=== PATIENT | female | born 1995 | race Caucasian/White ===

== ENCOUNTER 2018-03-07 19:53 | Emergency (ER) | payer SELFPAY ==
[2016-06-14 11:50] VITALS: Wt 79.4 kg
[~2018-03-07 19:53] MED LIST: DOCU240C67 PO; IBUP800T37 PO; Lanolin TP; ONDA4TAB97 PO; PER PO; PREN-127 PO
--- NOTE | 2018-03-07 19:55 | ER Report ---
History and Physical Time Seen By : 19:54 HPI/ROS CHIEF COMPLAINT: Chest pain, back pain HISTORY OF PRESENT ILLNESS: 22-year-old female presents via wheelchair to the emergency department complaining of chest pain and back pain. Patient is undergoing treatment for a back injury related to her work. She recently received 3 days of prednisone approximately one week ago. She finished several days ago. At around 5 PM, she developed some sharp pleuritic chest pain aggravated by deep inspiration and movement. She notes it radiates to her back. She notes sharp pain in her neck and upper back radiating to her right extremity. No fever or chills. She denies recent URI cough sore throat or rhinitis. She denies dysuria or urinary frequency. REVIEW OF SYSTEMS: Respiratory: As above Cardiovascular: As above Gastrointestinal: No vomiting, no abdominal pain. Musculoskeletal: No back pain. Allergies: Coded Allergies: No Known Drug Allergies (Unverified , 03/07/18) Home Meds Active Scripts Hydrocodone Bit/Acetaminophen (NORCO 5-325 TABLET) 1 Each Tablet, 1 EACH PO Q4H PRN for PAIN, #10 TAB Prov:ANNA PEDROZA DO 03/07/18 Oxycodone/Acetaminophen (OXYCODONE/ACETAMINOPHEN 5MG/325 MG) 5 Mg/325 Mg Tab, 1- 2 TAB PO Q4H PRN for PAIN, #20 TAB Prov:SALVADOR DOYLE MD 06/16/16 [Lanolin] 7 GM OINT No Conflict Check, 0 GM TP PRN PRN for DISCOMFORT FOR NURSING MOTHERS, TUBE Prov:SALVADOR DOYLE MD 06/16/16 Ibuprofen (IBUPROFEN) 800 Mg Tablet, 800 MG PO Q8H@04,12,20 for 10 Days, TAB Prov:SALVADOR DOYLE MD 06/16/16 Docusate Calcium (DOCUSATE CALCIUM) 240 Mg Capsule, 240 MG PO BID for 10 Days, CAPSULE Prov:SALVADOR DOYLE MD 06/16/16 Reported Medications Vits W-Ca,Fe,Fa(<1MG) ( VITAMINS) 1 Each Tablet, 1 EACH PO DAILY, TAB 04/29/16 Reviewed Nurses Notes: Yes Old Medical Records Reviewed: Yes Hx Smoking: No Smoking Status: Never Smoker Exposure to Second Hand Smoke?: No Constitutional Vital Sign - Last 24 Hours 03/07/18 03/07/18 03/07/1819/18 19:57 19:58 20:00 20:23 Temp 97.9 Pulse 67 68 Resp 16 14 B/P (MAP) 103/53 (70) 103/53 98/59 (72) Pulse Ox 95 95 O2 Delivery Room Air 03/07/18 03/07/18 03/07/18 03/07/18 20:30 20:38 21:08 21:23 Pulse 74 85 79 Resp 30 15 18 B/P (MAP) 98/59 (72) Pulse Ox 93 97 97 03/07/18 03/07/18 03/07/18 03/07/18 21:38 21:44 21:49 22:00 Pulse 81 83 B/P (MAP) 107/65 (79) 109/71 (84) Pulse Ox 97 95 03/07/18 03/07/18 22:04 22:16 Pulse 78 85 Resp 16 B/P (MAP) 138/85 (102) Pulse Ox 96 95 O2 Delivery Room Air Intake and Output 03/07/18 03/07/18 03/08/18 15:00 23:00 07:00 Intake Total 1000 ml Balance 1000 ml Physical Exam Borderline hypotensive, afebrile, pulse ox normal General Appearance: The patient is alert, has no immediate need for airway protection and no current signs of toxicity., Pale appearing, skin warm and dry, moderate distress HEENT: Pupils equal and round no injection. His normal, oropharynx without redness or exudate, mucous. Membranes are moist Respiratory: Chest is non tender, lungs are clear to auscultation. Chest wall tenderness on compression of the sternum Cardiac: regular rate and rhythm, distant heart sounds, no murmur Gastrointestinal: Abdomen is soft and non tender, no masses, bowel sounds normal. Musculoskeletal: Neck: Neck is supple and non tender. No adenopathy, no JVD Extremities have full range of motion and are non tender. No edema, no calf tenderness Skin: No rashes or lesions. DIFFERENTIAL DIAGNOSIS: After history and physical exam differential diagnosis was considered for chest pain including but not limited to myocardial ischemia, pericarditis pulmonary embolus, chest wall pain, pleural inflammation and pulmonary infectious causes. Additionally,back pain including but not limited to muscular pain, herniated disc, spine fracture, intra-abdominal causes and urinary tract infection. Medical Decision Making Data Points Result Diagram: 03/07/18200603/07/182006 Laboratory Hematology Test 03/07/18 20:07 03/07/18 21:27 Red Blood Count 5.48 M/uL (4.17-5.56) Mean Corpuscular Volume 81.5 fL (80.0-96.0) Mean Corpuscular Hemoglobin 27.1 pg (26.0-33.0) Mean Corpuscular Hemoglobin Concent 33.3 g/dL (32.0-36.0) Red Cell Distribution Width 13.7 % (11.5-14.5) Mean Platelet Volume 7.5 fL (7.2-11.1) Neutrophils (%) (Auto) 90.6 % (39.4-72.5) Lymphocytes (%) (Auto) 5.4 % (17.6-49.6) Monocytes (%) (Auto) 3.1 % (4.1-12.4) Eosinophils (%) (Auto) 0.5 % (0.4-6.7) Basophils (%) (Auto) 0.4 % (0.3-1.4) Nucleated RBC Relative Count (auto) 0.0 /100WBC Neutrophils # (Auto) 11.2 K/uL (2.0-7.4) Lymphocytes # (Auto) 0.7 K/uL (1.3-3.6) Monocytes # (Auto) 0.4 K/uL (0.3-1.0) Eosinophils # (Auto) 0.1 K/uL (0.0-0.5) Basophils # (Auto) 0.1 K/uL (0.0-0.1) Nucleated RBC Absolute Count (auto) 0.00 K/uL D-Dimer Quantitative (PE/DVT) 0.62 ug/ml (0-0.50) Sodium Level 139 mmol/L (137-145) Potassium Level 3.2 mmol/L (3.5-5.0) Chloride Level 101 mmol/L (98-107) Carbon Dioxide Level 26 mmol/L (22-31) Blood Urea Nitrogen 14 mg/dl (7-18) Creatinine 0.70 mg/dl (0.52-1.04) Glomerular Filtration Rate Calc > 60.0 Random Glucose 95 mg/dl (75-110) Lactate 1.0 mmol/L (0.7-2.1) Calcium Level 9.2 mg/dl (8.4-10.2) Total Bilirubin 1.1 mg/dl (0.2-1.3) Aspartate Amino Transf (AST/SGOT) 169 U/L (0-35) Alanine Aminotransferase (ALT/SGPT) 113 U/L (0-56) Alkaline Phosphatase 82 U/L (0-126) Troponin I < 0.012 ng/ml Total Protein 7.4 g/dl (6.3-8.2) Albumin 4.2 g/dl (3.5-5.0) Lipase 58 U/L (23-300) Human Chorionic Gonadotropin, Qual Negative (NEGATIVE) Urine Color Yellow Urine Clarity Clear Urine pH 5.0 pH (4.8-9.5) Urine Specific [place] >1.060 Urine Protein Negative mg/dL (NEGATIVE) Urine Glucose (UA) Negative mg/dL (NEGATIVE) Urine Ketones 20 mg/dL (NEGATIVE) Urine Blood Negative (NEGATIVE) Urine Nitrite Negative (NEGATIVE) Urine Bilirubin Negative (NEGATIVE) Urine Urobilinogen 4.0 mg/dL (0.2-1.9) Urine Leukocyte Esterase Trace (NEGATIVE) Urine RBC 2 /HPF (0-2/HPF) Urine WBC 2 /HPF (0-5/HPF) Urine Squamous Epithelial Cells Many /LPF (</=FEW) Urine Bacteria Negative /HPF (NONE-FEW) Urine Mucus Few /HPF (NONE-FEW) Chemistry Test 03/07/18 20:07 03/07/18 21:27 White Blood Count 12.4 k/uL (4.5-11.0) Red Blood Count 5.48 M/uL (4.17-5.56) Hemoglobin 14.8 g/dL (12.0-16.0) Hematocrit 44.6 % (34.0-47.0) Mean Corpuscular Volume 81.5 fL (80.0-96.0) Mean Corpuscular Hemoglobin 27.1 pg (26.0-33.0) Mean Corpuscular Hemoglobin Concent 33.3 g/dL (32.0-36.0) Red Cell Distribution Width 13.7 % (11.5-14.5) Platelet Count 262 K/uL (150-450) Mean Platelet Volume 7.5 fL (7.2-11.1) Neutrophils (%) (Auto) 90.6 % (39.4-72.5) Lymphocytes (%) (Auto) 5.4 % (17.6-49.6) Monocytes (%) (Auto) 3.1 % (4.1-12.4) Eosinophils (%) (Auto) 0.5 % (0.4-6.7) Basophils (%) (Auto) 0.4 % (0.3-1.4) Nucleated RBC Relative Count (auto) 0.0 /100WBC Neutrophils # (Auto) 11.2 K/uL (2.0-7.4) Lymphocytes # (Auto) 0.7 K/uL (1.3-3.6) Monocytes # (Auto) 0.4 K/uL (0.3-1.0) Eosinophils # (Auto) 0.1 K/uL (0.0-0.5) Basophils # (Auto) 0.1 K/uL (0.0-0.1) Nucleated RBC Absolute Count (auto) 0.00 K/uL D-Dimer Quantitative (PE/DVT) 0.62 ug/ml (0-0.50) Glomerular Filtration Rate Calc > 60.0 Lactate 1.0 mmol/L (0.7-2.1) Calcium Level 9.2 mg/dl (8.4-10.2) Total Bilirubin 1.1 mg/dl (0.2-1.3) Aspartate Amino Transf (AST/SGOT) 169 U/L (0-35) Alanine Aminotransferase (ALT/SGPT) 113 U/L (0-56) Alkaline Phosphatase 82 U/L (0-126) Troponin I < 0.012 ng/ml Total Protein 7.4 g/dl (6.3-8.2) Albumin 4.2 g/dl (3.5-5.0) Lipase 58 U/L (23-300) Human Chorionic Gonadotropin, Qual Negative (NEGATIVE) Urine Color Yellow Urine Clarity Clear Urine pH 5.0 pH (4.8-9.5) Urine Specific [place] >1.060 Urine Protein Negative mg/dL (NEGATIVE) Urine Glucose (UA) Negative mg/dL (NEGATIVE) Urine Ketones 20 mg/dL (NEGATIVE) Urine Blood Negative (NEGATIVE) Urine Nitrite Negative (NEGATIVE) Urine Bilirubin Negative (NEGATIVE) Urine Urobilinogen 4.0 mg/dL (0.2-1.9) Urine Leukocyte Esterase Trace (NEGATIVE) Urine RBC 2 /HPF (0-2/HPF) Urine WBC 2 /HPF (0-5/HPF) Urine Squamous Epithelial Cells Many /LPF (</=FEW) Urine Bacteria Negative /HPF (NONE-FEW) Urine Mucus Few /HPF (NONE-FEW) Coagulation Test 03/07/18 20:07 D-Dimer Quantitative (PE/DVT) 0.62 ug/ml Urinalysis Test 03/07/18 21:27 Urine Color Yellow Urine Clarity Clear Urine pH 5.0 pH (4.8-9.5) Urine Specific [place] >1.060 Urine Protein Negative mg/dL (NEGATIVE) Urine Glucose (UA) Negative mg/dL (NEGATIVE) Urine Ketones 20 mg/dL (NEGATIVE) Urine Blood Negative (NEGATIVE) Urine Nitrite Negative (NEGATIVE) Urine Bilirubin Negative (NEGATIVE) Urine Urobilinogen 4.0 mg/dL (0.2-1.9) Urine Leukocyte Esterase Trace (NEGATIVE) Urine RBC 2 /HPF (0-2/HPF) Urine WBC 2 /HPF (0-5/HPF) Urine Squamous Epithelial Cells Many /LPF (</=FEW) Urine Bacteria Negative /HPF (NONE-FEW) Urine Mucus Few /HPF (NONE-FEW) EKG/Imaging EKG Interpretation 12 lead EK Rhythm: normal sinus rhythm, sinus arrhythmia [place]: normal QRS: normal ST segments: normal, no evidence of ischemia, dysrhythmia or cardiac strain Imaging X-ray: Two-view chest x-ray obtained. I viewed the images myself on the PACS system. My interpretation of the images is: No infiltrate, no effusion, normal mediastinum. The radiologist interpretation had no clinically significant variation from this interpretation. ED Course/Re-evaluation Clinical Indication for ER IV: Hydration, IV Access ED Course Patient was admitted to an examination room. H&P was done. The differential diagnoses was considered. Patient's complaining of sharp right sternal chest pain for 12 hours. He notes exacerbation with movement, deep inspiration and pressure. Patient denies recent illness, viral symptoms, sore throat or cough. She denies leg swelling or calf pain. Patient advised conservative treatment plan for back and chest wall pain. Ibuprofen 600mg 3 times a day. He is given a take-home pack of Lortab for temporary pain relief tonight. Patient advised to follow-up with her primary care physician and her Worker's Compensation doc Decision to Disposition Date: Mar 07, 2018 Decision to Disposition Time: 22:02 Depart Departure Latest Vital Signs Vital Signs Date Time Temp Pulse Resp B/P (MAP) Pulse Ox O2 Delivery O2 Flow Rate FiO2 03/07/18 22:16 85 16 138/85 (102) 95 Room Air 03/07/18 19:58 97.9 Impression: Primary Impression: Back pain Additional Impressions: Chest pain of uncertain etiology Abnormal liver function tests Condition: Improved Disposition: HOME OR SELF-CARE New Scripts Hydrocodone Bit/Acetaminophen (NORCO 5-325 TABLET) 1 Each Tablet 1 EACH PO Q4H PRN for PAIN, #10 TAB Prov: ANNA PEDROZA DO 03/07/18 Patient Instructions: Pleurisy (ED), Thoracic Back Strain (ED) Additional Instructions: Continue ibuprofen 200 mg 3-4 tablets 3 times a day with food, do not exceed 12 tablets maximum Follow-up with your primary care doctor for further evaluation of your abnormal liver tests Problem Qualifiers Primary Impression: Back pain Back pain location: thoracic back pain Chronicity: chronic Back pain laterality: unspecified Qualified Codes: M54.6 - Pain in thoracic spine; G89.29 - Other chronic pain ANNA PEDROZA DO Mar 07, 2018 19:55
[2018-03-07] MEDS ORDERED: NS(*) 0.9% 1000 ML BAG 1,000 ML IV ONE (20:02)
[2018-03-07] MEDS ORDERED: KETOROLAC 30 MG/ML VIAL IVP ONE (20:05)
[2018-03-07] MEDS ORDERED: ONDANSETRON 4 MG/2 ML VIAL IVP ONE (20:05)
[2018-03-07 20:24] LABS: PLATELET COUNT, AUTOMATED 262 K/uL (150-450)
--- NOTE | 2018-03-07 20:29 | EKG ---
FACILITY: [facility] PATIENT NAME: DARCI BONILLA : [id number] MR: [id number] V: [id number] EXAM DATE: ORDERING PHYSICIAN: ANNA PEDROZA TECHNOLOGIST: GE Test Reason : CP Blood Pressure : / mmHG Vent. Rate : 064 BPM Atrial Rate : 065 BPM P-R Int : 128 ms QRS Dur : 098 ms QT Int : 434 ms P-R-T Axes : 047 078 066 degrees QTc Int : 447 ms Normal sinus rhythm with sinus arrhythmia Normal ECG No previous ECGs available Confirmed by LANEY JIMENEZ ([id number]) on 03/08/2018 6:44:46 AM Referred By: KASIA Confirmed By:LANEY JIMENEZ
[2018-03-07] MEDS ORDERED: NS(*) 0.9% 50 ML BAG 50 ML ONE (20:38)
[2018-03-07] MEDS ORDERED: IOPAMIDOL 76% 75 ML INFUS BTL 0 ML ONE ×2 (20:38→20:39)
[2018-03-07] MEDS ORDERED: IOPAMIDOL 76% 75 ML INFUS BTL 75 ML ONE (20:41)
[2018-03-07] MEDS ORDERED: MORPHINE 4 MG/ML SDV IVP ONE (21:35)
--- NOTE | 2018-03-07 21:42 | RADIOLOGY IMAGING REPORT ---
FACILITY: [facility] - [place] PATIENT NAME: Angie Jaramillo : 1995 MR: [id number] V: [id number] EXAM DATE: ORDERING PHYSICIAN: ANNA PEDROZA TECHNOLOGIST: Location: [facility] - [place] Patient: Angie Jaramillo : 1995 Visit/Account:[id number] Date of Sevice: 03/07/2018 EXAMINATION: CT CHEST PULMONARY ANGIOGRAM COMPARISON: None available HISTORY: Chest pain. Dyspnea. Elevated d-dimer. PROCEDURE: Pulmonary arterial phase imaging of the chest with 75 mL intravenous Isovue 370. Reconstru ction of the source data set includes multiplanar 2D in the sagittal and coronal planes, and 3D recon structed coronal slab MIP series. One of the following dose optimization techniques was utilized in the performance of this exam: Autom ated exposure control; adjustment of the mA and/or kV according to the patient's size; or use of an i terative reconstruction technique. Specific details can be referenced in the facility's radiology C T exam operational policy. FINDINGS: Pulmonary vasculature: There is good contrast opacification of the pulmonary arterial system. No pul monary embolism. Main pulmonary artery size is normal. Cardiac and mediastinum: Cardiac chamber size is normal. Thoracic aorta is unremarkable with no aneu rysm or dissection. Age-appropriate anterior mediastinal thymus. Lymph nodes: Negative. Lungs and pleura: At least 2 micronodules measuring up to 4 mm. No consolidation. No pneumothorax, edema, or effusion. Airways: Negative. Upper abdomen: No evidence of acute disease within the visualized upper abdomen. Osseous structures: Negative. IMPRESSION: 1. No pulmonary embolism or evidence of acute cardiopulmonary disease. 2. Pulmonary edema or measuring up to 4 mm. These are favored to be benign but if there are risk fa ctors for malignancy consider follow-up CT in 12 months. Report Dictated By: Ananda Means MD at 03/07/2018 9:28 PM Report E-Signed By: Ananda Means MD at 03/07/2018 9:38 PM [id number]
[2018-03-07] MEDS ORDERED: HYDR-653 PO (22:04)
[2018-03-07] MEDS ORDERED: ACET/HYDROC 5/325MG TH ER ONLY 2 TAB/BOTTLE PO ONE (22:10)
[2018-03-07 22:16] VITALS: BP 138/85
== END 2018-03-07 22:25 | disposition home or self-care (01) ==
LOC: ER 20:12
DX: M54.6 Pain in thoracic spine (principal); G89.29 Other chronic pain; R07.89 Other chest pain; R79.89 Other specified abnormal findings of blood chemistry
CPT/HCPCS: 71275; 81001; 83605; 83690; 84484; 84703; 85025; 85379; 93005; 96374; 96375; 99284; J1885; J2270; J2405; J7030; J7050; Q9967; 82040; 82247; 82310; 82374; 82435; 82565; 82947; 84075; 84132; 84155; 84295; 84450; 84460; 84520; 96361